=== PATIENT | female | born 1950 | race Caucasian/White ===

== ENCOUNTER 2018-01-20 07:49 | Outpatient (CLI) | payer OTHER ==
[~2018-01-20 07:49] MED LIST: CATAFLAM50 MG PO; CRESTOR20 MG PO; CRESTOR5 MG PO; METOPROLOL SUCC25 MG PO; ORPH100T PO
== END 2018-01-20 15:55 | disposition home or self-care (01) ==
LOC: TOM 07:49
DX: R42 Dizziness and giddiness (principal); G44.89 Other headache syndrome; M54.2 Cervicalgia

== ENCOUNTER 2018-01-22 10:38 | Outpatient (CLI) | payer OTHER | END 2018-01-22 16:46 | disposition home or self-care (01) | LOC: NUCLEAR 10:38 | DX: R42 Dizziness and giddiness (principal); I73.89 Other specified peripheral vascular diseases; E78.2 Mixed hyperlipidemia; I67.89 Other cerebrovascular disease ==

== ENCOUNTER 2018-05-26 07:10 | Outpatient (CLI) | payer OTHER | END 2018-05-26 07:17 | disposition home or self-care (01) | LOC: RAD 07:10 | DX: M54.5 Low back pain (principal); M54.2 Cervicalgia ==

== ENCOUNTER 2018-09-20 09:38 | Emergency (ER) | payer OTHER ==
[~2018-09-20] VITALS: Ht 154.9 cm; Wt 63.5 kg
== END 2018-09-20 11:37 | disposition home or self-care (01) ==
LOC: ER 09:38
DX: M54.31 Sciatica, right side (principal)

== ENCOUNTER 2019-07-21 22:47 | Emergency (ER) | payer OTHER ==
[~2019-07-21] VITALS: Ht 157.5 cm; Wt 59.0 kg
[2019-07-21] MEDS ORDERED: ZESTRIL20 MG (23:09)
[2019-07-21] MEDS ORDERED: GLUMETZA500 MG (23:09)
[2019-07-21] MEDS ORDERED: OMEPRAZOLE MAGN20 MG (23:09)
== END 2019-07-22 03:27 ==
LOC: ER 22:47
DX: R53.83 Other fatigue (principal)

== ENCOUNTER 2019-08-17 12:43 | Outpatient (CLI) | payer OTHER ==
[~2019-08-17 12:43] MED LIST changes: +GLUMETZA500 MG; +OMEPRAZOLE MAGN20 MG; +ZESTRIL20 MG
== END 2019-08-17 12:46 | disposition home or self-care (01) ==
LOC: RAD 12:43
DX: M15.0 Primary generalized (osteo)arthritis (principal)

== ENCOUNTER 2019-09-08 07:29 | Outpatient (CLI) | payer OTHER | END 2019-09-08 08:00 | disposition home or self-care (01) | LOC: NUCLEAR 07:29 | DX: M06.4 Inflammatory polyarthropathy (principal); M81.0 Age-related osteoporosis without current pathological fracture | CPT/HCPCS: 77080; 78315; A9503 ==

== ENCOUNTER 2019-11-17 15:13 | Emergency (ER) | payer OTHER ==
[~2019-11-17] VITALS: Ht 154.9 cm; Wt 63.5 kg
== END 2019-11-17 19:01 | disposition home or self-care (01) ==
LOC: ER 15:13
DX: M54.32 Sciatica, left side (principal); R19.04 Left lower quadrant abdominal swelling, mass and lump

== ENCOUNTER 2019-11-25 12:16 | Outpatient (CLI) | payer OTHER | END 2019-11-25 12:23 | disposition home or self-care (01) | LOC: RAD 12:16 | PROVIDERS: ATTEND Internal Medicine Rheumatology | DX: M15.0 Primary generalized (osteo)arthritis (principal) ==

== ENCOUNTER → 2019-11-25 12:58 | Outpatient (CLI) | payer OTHER | END | disposition home or self-care (01) | LOC: LAB 12:58 | PROVIDERS: ATTEND Internal Medicine Rheumatology | DX: M32.8 Other forms of systemic lupus erythematosus (principal) ==

== ENCOUNTER 2020-02-21 07:26 | Outpatient (CLI) | payer OTHER | END 2020-02-21 07:34 | disposition home or self-care (01) | LOC: TOM 07:26 | PROVIDERS: ATTEND Internal Medicine Rheumatology | DX: M75.82 Other shoulder lesions, left shoulder (principal) ==

== ENCOUNTER 2020-03-02 13:11 | Outpatient (CLI) | payer OTHER | END 2020-03-02 13:21 | disposition home or self-care (01) | LOC: RAD 13:11 | PROVIDERS: ATTEND Internal Medicine Rheumatology | DX: M15.0 Primary generalized (osteo)arthritis (principal) ==

== ENCOUNTER 2021-02-19 15:01 | Emergency (ER) | payer OTHER ==
[~2021-02-19] VITALS: Ht 154.9 cm; Wt 51.3 kg
[2021-02-19] MEDS ORDERED: CORTISPORIN EAR10 M1 OT (19:11)
== END 2021-02-19 19:16 | disposition home or self-care (01) ==
LOC: ER 15:01
DX: N39.0 Urinary tract infection, site not specified (principal); R42 Dizziness and giddiness; Z20.822 Contact with and (suspected) exposure to COVID-19

== ENCOUNTER 2021-04-20 18:41 | Emergency (ER) | payer OTHER ==
[~2021-04-20] VITALS: Ht 154.9 cm; Wt 56.7 kg
[~2021-04-20 18:41] MED LIST changes: +CORTISPORIN EAR10 M1 OT
== END 2021-04-20 22:55 | disposition home or self-care (01) ==
LOC: ER 18:41
DX: N30.80 Other cystitis without hematuria (principal)

== ENCOUNTER 2023-12-17 08:30 | Inpatient (IN) | payer OTHER ==
[~2023-12-17] VITALS: Ht 154.9 cm; Wt 57.6 kg
[2023-12-17] MEDS ORDERED: STOOL SOFTENER50 MG PO (11:19)
[2023-12-17] MEDS ORDERED: ZOLOFT25 MG PO (11:19)
[2023-12-17 11:53] LABS: PARTIAL THROMBOPLASTIN TIME 28.1 SECONDS (22.0-34.0); PROTHROMBIN TIME 10.5 SECONDS (9.0-11.5)
[2023-12-24] MEDS ORDERED: CEFAZOLIN SODIUM 1,000 MG VIAL IV SCH ×2 (08:30→21:00)
[2023-12-24] MEDS ORDERED: LIDOCAINE HCL 1%/EPINEPHRINE 20ML VIAL IJ SCH (08:30)
[2023-12-24] MEDS ORDERED: POVIDONE-IODINE 118 ML BOTT TOP SCH (08:30)
[2023-12-24] MEDS ORDERED: MORPHINE SULFATE 4 MG/ML VIAL IV ONE (10:50)
[2023-12-24] MEDS ORDERED: DOCUSATE CALCIUM 240 MG CAPSULE PO STA (12:27)
[2023-12-24] MEDS ORDERED: PROMETHAZINE HCL 25 MG/ML AMPUL IM PRN (12:30)
[2023-12-24] MEDS ORDERED: MEPERIDINE HCL/PF 50 MG/ML VIAL IM PRN (12:30)
[2023-12-24] MEDS ORDERED: RINGERS SOLUTION,LACTATED 1,000 ML IV SCH (13:45)
[2023-12-25] MEDS ORDERED: KETOROLAC TROMETHAMINE 10 MG TABLET PO SCH (09:00)
[2023-12-25] MEDS ORDERED: MAGNESIUM HYDROXIDE 30 ML BLIST.PACK PO NR (11:45)
[2023-12-25] MEDS ORDERED: MINERAL OIL 30 ML BLIST.PACK PO NR (11:45)
== END 2023-12-25 14:00 | disposition home or self-care (01) | DRG 748 ==
LOC: OB/GYN 12-24 05:19 → O/R 12-24 05:19 → SURH 12-24 07:00 → OB/GYN 12-24 10:33
PROVIDERS: ADMIT Obstetrics & Gynecology; ATTEND Obstetrics & Gynecology
PROC: 0JQC0ZZ Repair Pelvic Region Subcutaneous Tissue and Fascia, Open Approach (ICD-10-PCS; 2023-12-24)
PROC: 0JQC0ZZ Repair Pelvic Region Subcutaneous Tissue and Fascia, Open Approach (ICD-10-PCS; principal; 2023-12-24 07:00)
DX: N81.11 Cystocele, midline (principal); N81.6 Rectocele; Z20.822 Contact with and (suspected) exposure to COVID-19

== ENCOUNTER 2024-04-30 00:44 | Emergency (ER) | payer OTHER ==
[~2024-04-30] VITALS: Ht 154.9 cm; Wt 59.0 kg
[~2024-04-30 00:44] MED LIST changes: +STOOL SOFTENER50 MG PO; +ZOLOFT25 MG PO
[2024-04-30] MEDS ORDERED: KETOROLAC TROMETHAMINE 60 MG VIAL IM STA (01:37)
[2024-04-30] MEDS ORDERED: ACETAMINOPHEN 500 MG GEL..CAP PO STA (01:38)
== END 2024-04-30 02:53 | disposition home or self-care (01) ==
LOC: ER 00:46
DX: S80.01XA Contusion of right knee, initial encounter (principal); S93.402A Sprain of unspecified ligament of left ankle, initial encounter; W19.XXXA Unspecified fall, initial encounter; Y93.89 Activity, other specified; Y92.488 Other paved roadways as the place of occurrence of the external cause; Y99.8 Other external cause status; Z88.5 Allergy status to narcotic agent
CPT/HCPCS: 73565; 73610; 73620; 96372; 99283; J1885

== ENCOUNTER → 2024-10-23 | Emergency (ER) | payer OTHER ==
[~2024-10-23] VITALS: Ht 154.9 cm; Wt 59.0 kg
[~2024-10-23] MED LIST changes: +KETOROLAC TROMETHAMINE 60 MG VIAL IM STA
== END | disposition home or self-care (01) ==
LOC: ER 00:33
DX: S20.213A Contusion of bilateral front wall of thorax, initial encounter (principal); V49.9XXA Car occupant (driver) (passenger) injured in unspecified traffic accident, initial encounter; Y93.89 Activity, other specified; Y92.413 State road as the place of occurrence of the external cause; S13.4XXA Sprain of ligaments of cervical spine, initial encounter; Z88.8 Allergy status to other drugs, medicaments and biological substances; E88.810 Metabolic syndrome; I10 Essential (primary) hypertension; E11.9 Type 2 diabetes mellitus without complications; Z79.84 Long term (current) use of oral hypoglycemic drugs
CPT/HCPCS: 71045; 72040; 96372; 99283; J1885

== ENCOUNTER 2024-11-17 01:05 | Emergency (ER) | payer OTHER ==
[~2024-11-17] VITALS: Ht 154.9 cm; Wt 57.2 kg
[~2024-11-17 01:05] MED LIST changes: -KETOROLAC TROMETHAMINE 60 MG VIAL IM STA
[2024-11-17] MEDS ORDERED: FAMOTIDINE/PF 20 MG/2 ML VIAL IV PUSH STA (02:53)
[2024-11-17] MEDS ORDERED: PROMETHAZINE HCL 50 MG/ML AMPUL IM STA (02:53)
[2024-11-17] MEDS ORDERED: HYOSCYAMINE SULFATE 0.125 MG TAB.SUBL SL STA (02:53)
[2024-11-17] MEDS ORDERED: 0.9 % SODIUM CHLORIDE 1,000 ML IV ONE (03:00)
[2024-11-17] MEDS ORDERED: FAMOTIDINE/PF 20 MG/2 ML VIAL ONE (03:03)
[2024-11-17] MEDS ORDERED: PROMETHAZINE HCL 50 MG/ML AMPUL IM ONE (03:03)
[2024-11-17] MEDS ORDERED: HYOSCYAMINE SULFATE 0.125 MG TAB.SUBL ONE (03:03)
[2024-11-17 03:41] LABS: BASO % 0.4 % (0.1-1.2); EOS # 0.06 (0.04-0.54); EOS % 0.6 % (0.7-7.0); HEMATOCRIT 35.9 % (34.1-44.9); HEMOGLOBIN 12.3 g/dL (11.2-15.7); LYMPH # 3.07 (1.18-3.74); LYMPH % 32.9 % (19.3-53.1); MEAN CORPUSCULAR HEMOGLOBIN 28.5 pg (25.6-32.2); MONO # 0.94 (0.24-0.82); MONO % 10.1 % (4.7-12.5); NEUT % 55.8 % (34.0-71.1); PLATELET COUNT 362 K/uL (163-369); RED BLOOD COUNT 4.31 M/uL (3.93-5.22); RED CELL DISTRIBUTION WIDTH 14.2 % (11.6-14.4)
[2024-11-17 04:00] LABS: INR 0.96; PARTIAL THROMBOPLASTIN TIME 25.6 SECONDS (22.0-34.0); PROTHROMBIN TIME 10.5 SECONDS (9.0-11.5)
[2024-11-17 04:07] LABS: BILIRUBIN TOTAL 0.51 mg/dL (0.3-1.2); BILIRUBIN,CONJUGATED 0.12 mg/dL (0.0-0.2); BILIRUBIN,UNCONJUGATED 0.39 mg/dL (0.0-0.6); CREATININE SERUM 1.12 mg/dL (0.55-1.02); GFR 47.82; GLOBULINA 3.2 G/DL (2.4-3.5); POTASSIUM 3.99 mEq/L (3.5-5.1); TOTAL PROTEIN 7.2 gm/dL (6.4-8.2)
[2024-11-17 06:30] LABS: PH,URINE 7.5 (5.0-8.0); URINE APPEARANCE Clear; URINE BILIRRUBIN Negative (NEGATIVE); URINE BLOOD Negative; URINE COLOR Yellow; URINE GLUCOSE Negative (NEGATIVE); URINE KETONE Trace (NEGATIVE); URINE LEUKOCYTE Trace; URINE NITRATE Negative; URINE PROTEIN Negative (NEGATIVE); URINE UROBILINOGEN 0.2 E.U./dl
[2024-11-17 06:34] LABS: URINE BACTERIA 72.1 uL (0.0-1933); URINE EPITHELIAL CELLS 3.6 uL (0.0-38.8); URINE RBC 21.2 uL (0.0-20.8); URINE WBC 4.4 uL (0.0-23.2)
[2024-11-17] MEDS ORDERED: PEPCID40 MG PO (08:23)
[2024-11-17] MEDS ORDERED: ZOFRAN8 MG PO (08:23)
[2024-11-17] MEDS ORDERED: PROTONIX40 MG PO (08:23)
== END 2024-11-17 09:25 ==
LOC: ER 01:15
PROVIDERS: General Practice
DX: R10.11 Right upper quadrant pain (principal); Z88.8 Allergy status to other drugs, medicaments and biological substances; R11.10 Vomiting, unspecified; I10 Essential (primary) hypertension; E11.9 Type 2 diabetes mellitus without complications; Z79.84 Long term (current) use of oral hypoglycemic drugs
CPT/HCPCS: 36415; 76700; 96365; 96366; 96372; 99284; J2250; J3490; J7030

== ENCOUNTER → 2025-05-27 | Emergency (ER) | payer OTHER ==
[~2025-05-27] VITALS: Ht 154.9 cm; Wt 59.0 kg
[~2025-05-27] MED LIST changes: +0.9 % SODIUM CHLORIDE 500 ML IV ONE; +FAMOTIDINE/PF 20 MG/2 ML VIAL IV ONE; +FAMOTIDINE/PF 20 MG/2 ML VIAL ONE; +ONDANSETRON HCL 2 MG/ML VIAL IV ONE; +ONDANSETRON HCL 2 MG/ML VIAL ONE; +PEPCID40 MG PO; +PROTONIX40 MG PO; +ZOFRAN8 MG PO
[2025-05-27 19:42] LABS: BASO % 0.3 % (0.1-1.2); EOS # 0.04 (0.04-0.54); EOS % 0.4 % (0.7-7.0); LYMPH # 2.99 (1.18-3.74); LYMPH % 33.4 % (19.3-53.1); MEAN PLATELET VOLUME 8.90 fl (9.4-12.4); MONO # 0.66 (0.24-0.82); MONO % 7.4 % (4.7-12.5); NEUT # 5.20 (1.56-6.13); NEUT % 58.3 % (34.0-71.1); RED CELL DISTRIBUTION WIDTH 13.9 % (11.6-14.4)
[2025-05-27 19:43] LABS: URINE APPEARANCE Clear; URINE BILIRRUBIN Negative (NEGATIVE); URINE BLOOD Negative; URINE COLOR Yellow; URINE GLUCOSE Negative (NEGATIVE); URINE KETONE Trace (NEGATIVE); URINE LEUKOCYTE Negative; URINE NITRATE Negative; URINE PROTEIN Negative (NEGATIVE); URINE UROBILINOGEN 0.2 E.U./dl
[2025-05-27 19:47] LABS: URINE BACTERIA 44.5 uL (0.0-1933); URINE EPITHELIAL CELLS 10.1 uL (0.0-38.8); URINE WBC 5.6 uL (0.0-23.2)
[2025-05-27 20:13] LABS: INR 1.01
[2025-05-27 20:15] LABS: URINE CAST 0.70 uL (0.0-1.40); URINE RBC 0.9 uL (0.0-20.8)
[2025-05-27 20:29] LABS: ALT/SGPT 27.0 U/L (12-78); AST/SGOT 18.0 U/L (15-37); BILIRUBIN TOTAL 0.41 mg/dL (0.3-1.2); BILIRUBIN,CONJUGATED 0.13 mg/dL (0.0-0.2); BUN CREA RATIO 21.0 (7.0-25.0); CREATININE SERUM 0.71 mg/dL (0.55-1.02); GFR 80.92; GLOBULINA 3.6 G/DL (2.4-3.5); GLUCOSE FASTING 94.0 mg/dL (65-100); OSMOLALITY SERUM 284.0 MOSM/KG (275-295)
== END | disposition home or self-care (01) ==
LOC: ER 15:18
PROVIDERS: General Practice
DX: R10.11 Right upper quadrant pain (principal); R10.32 Left lower quadrant pain; R10.12 Left upper quadrant pain; E11.9 Type 2 diabetes mellitus without complications; Z79.84 Long term (current) use of oral hypoglycemic drugs; Z88.8 Allergy status to other drugs, medicaments and biological substances
CPT/HCPCS: 36415; 74177; 96365; 96366; 99284; J2405; J3490; J7030; Q9965